=== PATIENT | female | born 1970 | race Two or more races ===

== ENCOUNTER 2017-12-26 09:05 | Outpatient (CLI) | payer OTHER | END 2017-12-26 09:27 | disposition home or self-care (01) | LOC: SONOGRAMA 09:05 | DX: E04.1 Nontoxic single thyroid nodule (principal) ==

== ENCOUNTER 2021-11-11 03:44 | Outpatient (CLI) | payer OTHER | END 2021-11-11 15:00 | disposition home or self-care (01) | LOC: LAB 03:44 | DX: Z20.828 Contact with and (suspected) exposure to other viral communicable diseases (principal); Z20.818 Contact with and (suspected) exposure to other bacterial communicable diseases ==